=== PATIENT | male | born 2000 | race Caucasian/White ===

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

== ENCOUNTER 2022-01-31 15:22 | Day surgery (SDC) | payer OTHER, SELFPAY ==
[2022-01-31] VITALS (7 sets, daily range): BP systolic 130–156; BP diastolic 65–90; PULSE 75–99; RESP 12–21; TEMP 36.2–36.6; O2SAT 97–100; BMI 52.2
--- NOTE | 2022-01-31 14:06 | SUR.PREOP ---
Report to the Outpatient Waiting Room, entrance under the green pavilion located off [facility], at time 1530 on date 01/31/22. OR Time: 1730. - You and your visitor will be asked to self-screen and do not enter if you have any COVID symptoms. - Only one visitor and NO children visitors are allowed at this time. - The patient visitor is requested to leave or wait in car when not with patient due to restrictions. - A mask is required within the hospital. Patients may have clear liquids (water, carbonated beverages, clear teas, apple juice) until 3 hours prior to surgery with a maximum of 20 ounces. - No food from midnight until time of surgery - Infants may have breast milk until 4 hours before surgery, infant formula 6 hours prior to surgery. - Children will be allowed to drink immediately following surgery. If applicable, please bring a bottle or sippy cup to assist with drinking. Juice, water, soda, and popsicles are readily available. For infants on formula, please bring formula the day of surgery. Pacifiers are allowed. Take the following medications with a SIP of water the morning of surgery: HYDROXYZINE Medications to discontinue per physician Date to take last dose Please no make-up, nail albanian, hairspray, perfume, deodorant, or body powder the day of surgery. No jewelry (including any body piercings) or valuables the day of surgery, leave them at home. Please take a shower or bath the night before, or the morning of, surgery with an antibacterial soap. Wear comfortable, loose fitting clothing. Children are encouraged to wear pajamas. - Jewelry must be removed prior to entering the operating room. Rings and piercings that are not removed may be cut off. - The hospital will not accept responsibility for valuables. - Please leave all valuables, including medications, at home the day of surgery. If you are going home after surgery, a licensed otr flatbed driver must drive you home. - NO public transportation without another adult. - We recommend that an adult stay with you for 24 hours following discharge. - We also recommend that you do not drive, make important decision, drink alcoholic beverages, or take any drugs that were not prescribed by your health care provider for at least 24 hours after your discharge time. For Pediatric surgeries, we recommend two adults accompany the child home (only one inside the building at this time). Follow any additional instructions given to you from your surgeon. If you or anyone in your household have experienced Covid symptoms in the past week, please notify your surgeon or the nurse liaison at the phone number below for possible testing. Telephone instructions given to VISHAL RAMEY and asked if any additional questions and then verbalized understanding. Patient advised to call surgeon office or pre surgery nurse liaison [phone] if any additional questions.
[2022-01-31] MEDS: LACTATED RINGERS 1,000 ML 30 ML IV CONT ×2 (15:25→18:02)
--- NOTE | 2022-01-31 15:29 | WPDANESEPPF ---
Anes - Initial Pre Proc Eval Procedure: Operation Date: 01/31/22 17:30 Proposed Procedures p Incision and Drainage of Jeanna Rectal Abscess - Efren Dominique MD Date/Time: 01/31/22 15:29 Surgeon: Efren Dominique MD Pre Op Diagnosis: jeanna rectal abscess Patient Data Age: 21 Gender: M Height: 1.8 m Weight: 169.84 kg Allergies Allergy/AdvReac Type Severity Reaction Status Date / Time No Known Allergies Allergy Verified 01/31/22 12:50 Home Medications Medication Instructions Recorded Confirmed Type loratadine 10 mg tablet 10 mg PO DAILY 08/17/19 01/31/22 History lamotrigine 100 mg tablet 100 mg PO BID 11/06/20 01/31/22 History amlodipine 10 mg tablet 10 mg PO DAILY #90 tabs 02/20/21 01/31/22 Rx hydroxyzine HCl 10 mg tablet 25 mg PO QID PRN Anxiety 02/20/21 01/31/22 History sertraline 100 mg tablet 100 mg PO BID 02/20/21 01/31/22 History bupropion HCl 75 mg tablet 75 mg PO BID 04/02/21 01/31/22 History metoprolol succinate 50 mg 50 mg PO DAILY #90 tabs 09/10/21 01/31/22 Rx tablet,extended release 24 hr cholecalciferol (vitamin D3) 25 25 mcg PO DAILY 12/04/21 01/31/22 History mcg (1,000 unit) tablet (Vitamin D3) trazodone 50 mg tablet 50 mg PO QHS PRN Sleep 01/10/22 01/31/22 History omeprazole 20 mg capsule,delayed 20 mg PO DAILY #30 caps 01/18/22 01/31/22 Rx release cephalexin 500 mg capsule 500 mg PO Q12H 14 days #28 caps 01/31/22 01/31/22 Rx Patient hx anesthesia problems: none Family hx anesthesia problems: none Results Review: All pre-operative results and documents have been reviewed as part of the pre-operative evaluation. [facility] Past Medical History Medical History ADHD, predominantly hyperactive-impulsive subtype Adjustment disorder with depressed mood Anxiety Attention deficit disorder (~09/26/17) Bipolar 1 disorder, depressed BMI,pediatric >= 95% (03/01/19) Developmental dyslexia Essential hypertension HTN, age 0-18 Impulsive personality disorder Major depressive disorder, single episode, unspecified Morbid (severe) obesity due to excess calories Obesity (~09/26/17) Obstructive sleep apnea (adult) (pediatric) Thumb fracture (~09/26/17) Family History Family History Mother Diabetes mellitus Family history of mental disorder Hypertension Father Family history of mental disorder Grandparent Diabetes mellitus Other Family history of elevated blood lipids Social History Social History Smoking status: Former smoker Tobacco type: e-cigarettes/vaping Second hand tobacco smoke exposure: No Additional smoking assessment comments: 5 YEARS VAPING Alcohol intake: never Living arrangements: with family Gender identity (if verbalized by the patient): Male Spiritual care concerns: No Anes - Eval Final PreProcedure Day of Procedure 01/31/22 15:29 Patient weight: super morbidly obese Heart: regular rate and rhythm Lungs: clear to auscultation Airway: Mallampati scale class II Neurological: alert and oriented Last oral intake: >/= 8 hours ASA classification: III Emergent: no Anesthetic plan: proceed Anesthesia type and monitoring: general LMA and standard monitoring Results Review: All pre-operative results and documents have been reviewed as part of the pre-operative evaluation. Informed Consent: The patient's anesthetic plan and its attendant risks and benefits were discussed with the patient/family/POA. Questions were solicited and answers provided to the satisfaction of the patient/family/POA.
--- NOTE | 2022-01-31 15:35 | WPDHPUPDATE1 ---
History and Physical Update Update Date/Time: 01/31/22 15:35 History and Physical has been reviewed, including an updated exam of the patient. There are NO changes in the patient's condition. Risks, benefits, and alternatives have been discussed and questions answered. Patient agrees to proceed with procedure.
[2022-01-31] MEDS: ACETAMINOPHEN 500 MG TABLET 1000 MG PO (15:40)
[2022-01-31] MEDS: KETOROLAC 15 MG/ML VIAL (*BKC) IV PUSH (15:40)
[2022-01-31] MEDS: ceFAZolin 3 GM/D5W 100 ML 100 ML IVPB (17:03)
[2022-01-31] MEDS: BUPIVACAINE/EPINEPHRINE 0.25% 50 ML VIAL INFILTRATE (17:34)
--- NOTE | 2022-01-31 17:52 | P.OP_ITS ---
Procedure Note - Detailed Date of Procedure 01/31/22 Pre-op Diagnosis jeanna rectal abscess Post-op Diagnosis Other (Perineal abscess) Procedure Performed Incision and drainage complicated perineal abscess Surgeon Efren Dominique MD Research Methods Instructor Isis Hall [facility] Anesthesia General and Local (0.25% bupivacaine with epinephrine) Indications Patient is a 21-year-old man who, back in November, had a perineal abscess incised and drained in his primary care doctor's office. This did go on to heal but then, 3 days ago, he developed increased swelling and pain. This morning this spontaneously drained again. He was seen in the office this morning and found to have a large perineal abscess. It was unclear if this tracked towards the rectum or the scrotum. It was quite tender and patient is morbidly obese. He is taken to surgery now for incision and drainage under anesthesia Findings The abscess did not at all tract towards the rectum. It did track towards the base of the scrotum. I could find no tracking further than the lower aspect of the scrotum. Description of Procedure Patient was taken to surgery and induced into general anesthesia. He was placed in lithotomy in a supine position. The rectal and perineal area as well as the genitalia were exposed. This entire area was prepped and draped. I initially probed the abscess checking for any tracking towards the rectum. There was no evidence of this at all. There did did seem to be some tracking anteriorly towards the scrotum. The skin overlying the abscess was very flimsy and I opened this skin removing some of it for adequate drainage. I then used to probe followed by a curved fine tip clamp. It did track fairly deep in the perineum to the base of the scrotum. I infiltrated local over the area where the probe ended. I made an incision here and then using the curved clamp was able to connect the tract of the abscess cavity through this opening. I put a finger in the larger opening in the perineum and broke up any loculations. I then irrigated the tract with saline. A quarter-inch Aan drain was then placed through the tract. It was sutured to itself with 2-0 silk. The end was cut very short. The Ana was acting as a seton to facilitate drainage of the abscess. I then used cautery and Nu gauze packing to achieve hemostasis of the wound. The wound was then dressed with fluffs and ABDs. The patient was returned to a supine position, awakened and taken to recovery in good condition. Sponge and needle counts were correct x2. Estimated Blood Loss -50 Drains Yes (Quarter-inch Ana drain as a seton) Packing Yes (1/2 inch iodoform Nu Gauze) Pathology None sent Complications No immediate complications Condition Stable Disposition PACU [facility] Billing Surgery - Charge Forward: Surgery Billing (Incision and drainage complex perineal abscess)
== END 2022-01-31 19:17 | disposition home or self-care (01) ==
PROVIDERS: PCP Family Medicine; Visit Provider Surgery
PROC: (CPT 46040; principal; 2022-01-31 17:30)
DX: L02.215 Cutaneous abscess of perineum (principal); F90.1 Attention-deficit hyperactivity disorder, predominantly hyperactive type; F31.9 Bipolar disorder, unspecified; I10 Essential (primary) hypertension; F41.9 Anxiety disorder, unspecified; G47.33 Obstructive sleep apnea (adult) (pediatric); E66.01 Morbid (severe) obesity due to excess calories; F17.290 Nicotine dependence, other tobacco product, uncomplicated
CPT/HCPCS: 10061; A9270; J0330; J0690; J1100; J1885; J2250; J2405; J2704; J3010; J7120

== ENCOUNTER 2022-04-22 18:12 | Emergency (ER) | payer OTHER, SELFPAY ==
[2022-04-22 18:22] VITALS: BP 137/90; PULSE 82; RESP 16; TEMP 36.8; O2SAT 100
--- NOTE | 2022-04-22 18:22 | ED.WOUNDLAC ---
HPI - Wound/Laceration General Chief Complaint: Wound/Laceration Stated Complaint: chin injury Time Seen by Provider: 04/22/22 18:20 Source: patient and RN notes reviewed Mode of arrival: ambulatory Limitations: no limitations History of Present Illness HPI narrative: 20-year-old male presents with concern for injury to his chin. He reports while at work a wrench slipped and hit him in the chin he reports a laceration under his chin. He reports some dizziness. He denies direct head trauma. He denies history of concussion. He denies vomiting or severe headaches. Has retrograde amnesia. Related Data Home Medications Medication Instructions Recorded Confirmed loratadine 10 mg tablet 10 mg PO DAILY 08/17/19 04/02/22 lamotrigine 100 mg tablet 100 mg PO BID 11/06/20 04/02/22 hydroxyzine HCl 10 mg tablet 25 mg PO QID PRN Anxiety 02/20/21 04/02/22 sertraline 100 mg tablet 100 mg PO BID 02/20/21 04/02/22 bupropion HCl 75 mg tablet 75 mg PO BID 04/02/21 04/02/22 cholecalciferol (vitamin D3) 25 25 mcg PO DAILY 12/04/21 04/02/22 mcg (1,000 unit) tablet (Vitamin D3) trazodone 50 mg tablet 50 mg PO QHS PRN Sleep 01/10/22 04/02/22 lisdexamfetamine 60 mg capsule mg 04/22/22 (Vyvanse) Allergies Allergy/AdvReac Type Severity Reaction Status Date / Time No Known Allergies Allergy Verified 04/01/22 08:57 Review of Systems Review of Systems: CONSTITUTIONAL: Denies malaise, chills, sweats, or fever. SKIN: Reports laceration under his chin MUSCULOSKELETAL: Denies muscle skeletal pain NEUROLOGIC: Denies numbness, weakness, headache. Reports dizziness All systems reviewed & are unremarkable except as noted in HPI and below PMFSH Past Medical History Medical History ADHD, predominantly hyperactive-impulsive subtype Adjustment disorder with depressed mood Anxiety Attention deficit disorder (~09/26/17) Bipolar 1 disorder, depressed BMI,pediatric >= 95% (03/01/19) Developmental dyslexia Essential hypertension HTN, age 0-18 Impulsive personality disorder Major depressive disorder, single episode, unspecified Morbid (severe) obesity due to excess calories Obesity (~09/26/17) Obstructive sleep apnea (adult) (pediatric) Thumb fracture (~09/26/17) Surgical History Surgical History History of incision and drainage I&D Perirectal Abscess on 01/31 Family History Family History Mother Diabetes mellitus Family history of mental disorder Hypertension Father Family history of mental disorder Grandparent Diabetes mellitus Other Family history of elevated blood lipids Social History Social History Smoking status: Former smoker Tobacco type: e-cigarettes/vaping Second hand tobacco smoke exposure: No Additional smoking assessment comments: 5 YEARS VAPING Alcohol intake: never Gender identity (if verbalized by the patient): Male Spiritual care concerns: No Comments At time of signature, agree with nursing past medical, surgical, social and family history. There is no relevant family history pertinent to the presenting complaint Exam Narrative: GENERAL: Well-appearing, well-nourished, and in no acute distress. HEAD: Normocephalic, atraumatic. EYES: PERRLA, conjunctivae clear, and EOMI. ENT: Mucous membranes moist. NECK: Supple. No lymphadenopathy CHEST: Clear to auscultation. No respiratory distress. HEART: Regular rate and rhythm. SKIN: Warm, dry. 1 cm linear laceration noted under the chin, gaping NEURO: Alert and oriented x3. No focal deficits, cranial nerves 2-12 grossly intact PSYCH: Normal mood and affect Course Course Emergency Course: Discussed limited diagnostic capability express care for head injury, patient is understandable, patient chooses to not go to the
== END 2022-04-22 18:43 | disposition home or self-care (01) ==
PROVIDERS: Emergency Provider Nurse Practitioner; PCP Family Medicine
DX: S01.81XA Laceration without foreign body of other part of head, initial encounter (principal); I10 Essential (primary) hypertension; Z87.891 Personal history of nicotine dependence; W22.8XXA Striking against or struck by other objects, initial encounter; Y99.0 Civilian activity done for income or pay
CPT/HCPCS: 12011; 99212; G0463

== ENCOUNTER 2022-06-20 12:22 | Outpatient (CLI) | payer OTHER, SELFPAY ==
--- NOTE | ~2022-06-20 | XR_ITS ---
Right Knee Technique: AP, lateral, and sunrise views were obtained. Clinical History: Pain Findings: No fracture or dislocation is seen. Osseous alignment is anatomic. Joint spaces are preserv ed without degenerative or erosive change. Soft tissues are unremarkable. No joint effusion is seen. Impression: Unremarkable right knee radiographs. Reviewed, dictated and finalized at location . GRADER Impression: Unremarkable right knee radiographs.
== END 2022-06-20 12:23 | disposition home or self-care (01) ==
LOC: ANHIMG 12:24
PROVIDERS: PCP Family Medicine; Visit Provider Physician Assistant
DX: M25.561 Pain in right knee (principal)
CPT/HCPCS: 73562

== ENCOUNTER 2022-09-03 08:48 | Outpatient (CLI) | payer OTHER, SELFPAY ==
--- NOTE | ~2022-09-03 | US_ITS ---
Limited Abdominal Sonogram: Real-time sonographic imaging of the right upper quadrant was performed. Clinical History: Right upper quadrant pain Findings: The liver appears echogenic, with no evidence of mass lesion or bile duct dilatation. Main portal vein demonstrates normal direction of flow. The gallbladder is well distended, and appears no rmal with no evidence of gallstone or wall thickening. The common bile duct measures 2 mm. The visua lized pancreas, aorta, and IVC are unremarkable. Impression: Diffuse fatty infiltration of liver. Reviewed, dictated and finalized at location M. Impression: Diffuse fatty infiltration of liver.
== END 2022-09-03 08:49 | disposition home or self-care (01) ==
PROVIDERS: PCP Family Medicine; Visit Provider Family Medicine
DX: R10.11 Right upper quadrant pain (principal); K76.0 Fatty (change of) liver, not elsewhere classified
CPT/HCPCS: 76705

== ENCOUNTER 2023-06-27 15:50 | Outpatient (CLI) | payer OTHER, SELFPAY ==
[2023-06-27 19:31] LABS: Basophils Absolute Auto 0.1 K/mm3 (0.0-0.1); Basophils Percent Auto 0.9 % (0.2-1.2); Eosinophils Percent Auto 0.7 % (0-4.4); Hematocrit 47.1 % (42.0-52.0); Immature Granulocyte Absolute 0.01 K/mm3 (0.00-0.031); Immature Granulocyte Percent A 0.2 % (0-0.5); Lymphocytes Absolute Auto 1.69 K/mm3 (0.9-3.2); Mean Corpuscular HGB Conc 31.8 g/dl (32-36); Mean Corpuscular Hemoglobin 25.6 pg (26-34); Mean Corpuscular Volume 80.5 fl (80-100); Monocytes Absolute Auto 0.4 K/mm3 (0.1-0.6); Monocytes Percent Auto 6.6 % (2.6-8.5); Neutrophils Absolute Auto 3.5 K/mm3 (1.3-6.7); Neutrophils Percent Auto 61.6 % (45.5-73.1); Platelet Count Result 251 k/mm3 (150-375); Red Blood Count 5.85 M/mm3 (4.6-6.20); Red Cell Distribution Width 15.3 % (11.5-14.5); White Blood Count 5.6 K/mm3 (4.5-10.0)
[2023-06-27 19:52] LABS: Alanine Aminotransferase 26 U/L (6-50); Albumin Level 4.8 g/dL (3.5-5.1); Alkaline Phosphatase 71 U/L (38-126); Anion Gap 8 mmol/L (8-16); Aspartate Amino Transferase 27 U/L (17-59); Bilirubin,Total 1.4 mg/dL (0.2-1.3); Blood Urea Nitrogen 18 mg/dL (9-20); Calcium 9.5 mg/dL (8.4-10.2); Carbon Dioxide 29 mmol/L (22-30); Chloride 104 mmol/L (98-107); Cholesterol 193 mg/dL (0-200); Estimated Glomerular Filt Rate > 60; Glucose 91 mg/dL (65-110); HDL Direct 42 mg/dL; Potassium 4.3 mmol/L (3.4-5.0); Sodium 141 mmol/L (137-145); Triglycerides 188 mg/dL (<150)
[2023-06-27 20:05] LABS: LDL Cholesterol Direct 120 mg/dL
[2023-07-04 12:17] LABS: Testosterone Free 96.3 pg/mL (35.0-155.0); Testosterone Total 430 ng/dL (250-1100)
== END 2023-06-27 15:51 | disposition home or self-care (01) ==
LOC: ANHGOSHLAB 15:51
PROVIDERS: PCP Family Medicine; Visit Provider Nurse Practitioner Family
DX: E66.9 Obesity, unspecified (principal); I10 Essential (primary) hypertension; K75.81 Nonalcoholic steatohepatitis (NASH)
CPT/HCPCS: 36415; 80053; 80061; 84402; 84403; 84443; 85025

== ENCOUNTER 2023-11-10 18:32 | Emergency (ER) | payer OTHER, SELFPAY ==
--- NOTE | 2023-11-10 18:38 | ED.SKABFB ---
HPI - Skin/Abscess/Foreign Bdy General Chief complaint: Skin/Abscess/Foreign Body Stated complaint: Skin Irritation Source: patient and RN notes reviewed Mode of arrival: ambulatory Limitations: no limitations History of Present Illness HPI narrative: Patient is a 23-year-old male who presents to the [facility] with complaints bilateral lower leg redness and swelling. He states that he noticed the redness 2 and half days ago. He states that the redness continues to increase. He denies injury to his lower legs. Denies numbness and sensation is intact. Denies open wounds to the legs. He denies recent fevers. Related Data Home Medications Medication Instructions Recorded Confirmed loratadine 10 mg tablet 10 mg PO DAILY 08/17/19 11/10/23 lamotrigine 100 mg tablet 100 mg PO BID 11/06/20 11/10/23 hydroxyzine HCl 10 mg tablet 25 mg PO QID PRN Anxiety 02/20/21 11/10/23 sertraline 100 mg tablet 100 mg PO BID 02/20/21 11/10/23 bupropion HCl 75 mg tablet 200 mg PO BID 08/06/22 11/10/23 Allergies Allergy/AdvReac Type Severity Reaction Status Date / Time No Known Allergies Allergy Verified 08/29/23 10:53 Review of Systems Review of Systems: CONSTITUTIONAL: Denies fever, chills, or sweats. EYES: Denies visual changes, redness, or discharge. ENT: Denies otalgia and sore throat CARDIOVASCULAR: Denies chest pain, palpitations, or edema. RESPIRATORY: Denies cough or dyspnea. GASTROINTESTINAL: Denies abdominal pain, nausea, vomiting, or diarrhea. GENITOURINARY: Denies dysuria or hematuria. SKIN: Redness and swelling to bilateral lower legs. MUSCULOSKELETAL: Denies back pain, joint pain, or myalgia. NEUROLOGIC: Denies headache, numbness, or weakness. Pertinent positives per HPI. [facility] Past Medical History Medical History ADHD, predominantly hyperactive-impulsive subtype Adjustment disorder with depressed mood Anxiety Attention deficit disorder (~09/26/17) Bipolar 1 disorder, depressed BMI,pediatric >= 95% (03/01/19) Developmental dyslexia Essential hypertension HTN, age 0-18 Impulsive personality disorder Major depressive disorder, single episode, unspecified Morbid (severe) obesity due to excess calories Obesity (~09/26/17) Obstructive sleep apnea (adult) (pediatric) Thumb fracture (~09/26/17) Surgical History Surgical History History of incision and drainage I&D Perirectal Abscess on 01/31 Family History Family History Mother Diabetes mellitus Family history of mental disorder Hypertension Father Family history of mental disorder Grandparent Diabetes mellitus Other Family history of elevated blood lipids Social History Social History Smoking status: Current some day smoker Tobacco type: e-cigarettes/vaping Second hand tobacco smoke exposure: No Additional smoking assessment comments: 5 YEARS VAPING will have a cigarette on occasion Alcohol intake: current Alcohol use details: occasionally Substance use: never Substance use type: does not use Do You Feel Safe in your Home?: Yes Lack of Transportation: No Lack of Food: Never True Current Housing: I Have Housing Concerned About Future Housing: No Difficulty Paying Gas/Electric Bills: No Difficulty Paying for Meds: No Currently Unemployed: No Education: High School Diploma/GED Difficulty w/ Childcare or Family Care: No Living arrangements: with family Gender identity (if verbalized by the patient): Male Spiritual care concerns: No Comments At the time of my signature, I reviewed and agree with the nursing past medical, surgical, social, and family history. There is no relevant family history pertinent to the patient complaint. Exam Narrative: GENERAL: This is a well-
[2023-11-10 18:49] VITALS: BP 158/91; PULSE 87; RESP 20; TEMP 36.7; O2SAT 98
== END 2023-11-10 19:39 | disposition home or self-care (01) ==
PROVIDERS: Emergency Provider Nurse Practitioner; PCP Family Medicine
DX: L03.116 Cellulitis of left lower limb (principal); L03.115 Cellulitis of right lower limb; F17.290 Nicotine dependence, other tobacco product, uncomplicated; I10 Essential (primary) hypertension; E66.01 Morbid (severe) obesity due to excess calories; Z68.43 Body mass index [BMI] 50.0-59.9, adult; F31.9 Bipolar disorder, unspecified; F41.9 Anxiety disorder, unspecified
CPT/HCPCS: 99213; G0463

== ENCOUNTER 2024-01-12 16:07 | Emergency (ER) | payer OTHER, SELFPAY ==
--- NOTE | ~2024-01-12 | XR_ITS ---
XR finger 2nd RT min 2V 01/12/2024 16:34 INDICATION: Right second finger pain after injury PROCEDURE: 4 views right second finger COMPARISON: No prior studies for comparison. FINDINGS: Fracture, dislocation or subluxation is not identified. The soft tissues appear within norm al limits. No foreign bodies are identified. IMPRESSION: 1: NO ACUTE BONE OR JOINT ABNORMALITY IDENTIFIED. Reviewed, dictated and finalized at location B.
[2024-01-12 16:21] VITALS: BP 138/74; PULSE 119; RESP 15; TEMP 37; O2SAT 98
--- NOTE | 2024-01-12 16:23 | ED.UPPEXIN ---
HPI - Extremity Injury (Upper) General Chief Complaint: Extremity Injury, Upper Stated Complaint: Index Finger Right Hand Time Seen by Provider: 01/12/24 16:25 Source: patient Mode of arrival: ambulatory Limitations: no limitations History of Present Illness HPI narrative: Anil is a 23-year-old male patient presenting to the clinic today with complaints of a right index finger injury. He reports he was helping a friend change some pins and a truck and the pin hammer smashed the distal index finger. He has pain and swelling to the distal index finger. No open skin or laceration but does have some old bruising underneath the nail Related Data Home Medications Medication Instructions Recorded Confirmed loratadine 10 mg tablet 10 mg PO DAILY 08/17/19 01/12/24 lamotrigine 100 mg tablet 100 mg PO BID 11/06/20 01/12/24 hydroxyzine HCl 10 mg tablet 25 mg PO QID PRN Anxiety 02/20/21 01/12/24 sertraline 100 mg tablet 100 mg PO BID 02/20/21 01/12/24 bupropion HCl 75 mg tablet 200 mg PO BID 08/06/22 01/12/24 trazodone 50 mg tablet 50 mg PO HS 01/12/24 01/12/24 Allergies Allergy/AdvReac Type Severity Reaction Status Date / Time No Known Allergies Allergy Verified 01/12/24 16:14 Review of Systems Review of Systems: Pertinent positives per HPI. Patient denies any fever, chills, rash, headache, visual changes, dizziness, cough, runny nose, sore throat, shortness of breath, chest pain, palpitations, nausea, vomiting, diarrhea, constipation, abdominal pain, or any urinary issues. [facility] Past Medical History Medical History ADHD, predominantly hyperactive-impulsive subtype Adjustment disorder with depressed mood Anxiety Attention deficit disorder (~09/26/17) Bipolar 1 disorder, depressed BMI,pediatric >= 95% (03/01/19) Developmental dyslexia Essential hypertension HTN, age 0-18 Impulsive personality disorder Major depressive disorder, single episode, unspecified Morbid (severe) obesity due to excess calories Obesity (~09/26/17) Obstructive sleep apnea (adult) (pediatric) Thumb fracture (~09/26/17) Surgical History Surgical History History of incision and drainage I&D Perirectal Abscess on 01/31 Family History Family History Mother Diabetes mellitus Family history of mental disorder Hypertension Father Family history of mental disorder Grandparent Diabetes mellitus Other Family history of elevated blood lipids Social History Social History Smoking status: Current some day smoker Tobacco type: e-cigarettes/vaping Second hand tobacco smoke exposure: No Additional smoking assessment comments: 5 YEARS VAPING will have a cigarette on occasion Alcohol intake: current Alcohol use details: occasionally Substance use: never Substance use type: does not use Do You Feel Safe in your Home?: Yes Lack of Transportation: No Lack of Food: Never True Current Housing: I Have Housing Concerned About Future Housing: No Difficulty Paying Gas/Electric Bills: No Difficulty Paying for Meds: No Currently Unemployed: No Education: High School Diploma/GED Difficulty w/ Childcare or Family Care: No Living arrangements: with family Gender identity (if verbalized by the patient): Male Spiritual care concerns: No Comments At the time of my signature, I reviewed and agree with the nursing past medical, surgical, social, and family history. There is no relevant family history pertinent to the patient complaint. Exam Narrative: General: Well-developed, well nourished, in no apparent distress Head: Normocephalic, atraumatic. Cardio: Regular rate and rhythm, s1 and s2 normal, no murmur appreciated. Resp: Clear to auscultation bilaterally, no rhonchi, rales,
== END 2024-01-12 16:46 | disposition home or self-care (01) ==
PROVIDERS: Emergency Provider Nurse Practitioner Family; PCP Family Medicine
DX: S60.021A Contusion of right index finger without damage to nail, initial encounter (principal); X58.XXXA Exposure to other specified factors, initial encounter; F41.9 Anxiety disorder, unspecified; I10 Essential (primary) hypertension; F81.0 Specific reading disorder; F31.9 Bipolar disorder, unspecified; E66.01 Morbid (severe) obesity due to excess calories; Z68.42 Body mass index [BMI] 45.0-49.9, adult
CPT/HCPCS: 73140; 99213; G0463

== ENCOUNTER 2024-02-10 07:21 | Emergency (ER) | payer OTHER, SELFPAY ==
[2024-02-10] VITALS (9 sets, daily range): BP systolic 128–162; BP diastolic 72–91; PULSE 62–98; RESP 16–20; TEMP 36.4–36.8; O2SAT 98–100
--- NOTE | ~2024-02-10 | XR_ITS ---
EXAMINATION: XR chest 2V DATE: 02/10/2024 08:09 INDICATION: Chest pain. TECHNIQUE: Frontal and lateral views of the chest were obtained. COMPARISON: None. FINDINGS: There is no pneumonia, pleural effusion, or pneumothorax. The heart size is normal. IMPRESSION: 1. No acute cardiopulmonary disease. Reviewed, dictated and finalized at location A.
--- NOTE | 2024-02-10 07:24 | ECG_ITS ---
Test Date: 2024-02-10 07:26:01 Measurements Intervals [place] Rate: 97 P: 35 OR: 160 QRS: 15 QRSD: 115 T: 2 QT: 344 QTc: 438 Interpretive Statements SINUS RHYTHM MODERATE INTRAVENTRICULAR CONDUCTION DELAY [110+ ms QRS DURATION] No previous ECG available for comparison Electronically Signed On 02-10-2024 10:24:15 CDT by Lis Garland M.D.
[2024-02-10] MEDS: ASPIRIN 81 MG CHEWABLE TABLET 324 MG PO (07:58)
[2024-02-10 07:59] LABS: Basophils Percent Auto 0.5 % (0.2-1.2); Eosinophils Absolute Auto 0.1 K/mm3 (0-0.3); Eosinophils Percent Auto 1.2 % (0-4.4); Hematocrit 43.3 % (42.0-52.0); Hemoglobin 14.1 g/dL (14.0-18.0); Immature Granulocyte Absolute 0.01 K/mm3 (0.00-0.031); Immature Granulocyte Percent A 0.2 % (0-0.5); Lymphocytes Absolute Auto 1.38 K/mm3 (0.9-3.2); Lymphocytes Percent Auto 33.5 % (18.3-44.2); Mean Corpuscular HGB Conc 32.6 g/dl (32-36); Mean Corpuscular Hemoglobin 27.6 pg (26-34); Mean Corpuscular Volume 84.9 fl (80-100); Mean Platelet Volume 10.1 fl (7.4-10.4); Monocytes Absolute Auto 0.4 K/mm3 (0.1-0.6); Neutrophils Absolute Auto 2.3 K/mm3 (1.3-6.7); Neutrophils Percent Auto 54.6 % (45.5-73.1); Platelet Count Result 184 k/mm3 (150-375); Red Cell Distribution Width 14.2 % (11.5-14.5); White Blood Count 4.1 K/mm3 (4.5-10.0)
[2024-02-10 08:13] LABS: Alanine Aminotransferase 31 U/L (6-50); Albumin Level 4.4 g/dL (3.5-5.1); Alkaline Phosphatase 64 U/L (38-126); Anion Gap 12 mmol/L (4-12); Aspartate Amino Transferase 28 U/L (17-59); Blood Urea Nitrogen 12 mg/dL (9-20); Calcium 9.5 mg/dL (8.4-10.2); Carbon Dioxide 25 mmol/L (22-30); Chloride 104 mmol/L (98-107); Estimated CRCL calculation 174 ml/min; Estimated Glomerular Filt Rate > 60; Glucose 85 mg/dL (65-110); Lipase 126 U/L (23-300); Potassium 3.5 mmol/L (3.4-5.0); Sodium 141 mmol/L (137-145)
[2024-02-10 08:16] LABS: INR 1.1; Prothrombin Time 14.2 Seconds (11.1-14.7)
[2024-02-10 08:17] LABS: Partial Thromboplastin Time 35.6 Seconds (22.3-36.8)
[2024-02-10 08:25] LABS: Troponin I < 0.012 ng/mL (0.000-0.034)
--- NOTE | 2024-02-10 08:34 | PC.NURSE ---
Pt resting on stretcher, reproducible chest pain noted. Denies SOB.
--- NOTE | 2024-02-10 08:56 | ED.CHESTPAIN ---
HPI - Chest Pain General Chief Complaint: Chest Pain Stated Complaint: CHEST PAIN Time Seen by Provider: 02/10/24 08:52 History of Present Illness HPI narrative: 23-year-old male history of hypertension, MULU, anxiety and presents to the emergency room for evaluation of chest pain. Patient states he developed chest pain last night while fixing his truck. Describes the pain as a punching sensation on the right side of his chest that does not radiate. Denies any alleviating or aggravating factors. States he believes his GERD and took Tums with no relief. Denies any shortness of breath, difficulty breathing, palpitations, lower extremity swelling. Denies a history of similar symptoms. Denies history of blood clots. No recent trauma. No history of cancer. Related Data Home Medications Medication Instructions Recorded Confirmed loratadine 10 mg tablet 10 mg PO DAILY 08/17/19 01/12/24 lamotrigine 100 mg tablet 100 mg PO BID 11/06/20 01/12/24 hydroxyzine HCl 10 mg tablet 25 mg PO QID PRN Anxiety 02/20/21 01/12/24 sertraline 100 mg tablet 100 mg PO BID 02/20/21 01/12/24 bupropion HCl 75 mg tablet 200 mg PO BID 08/06/22 01/12/24 trazodone 50 mg tablet 50 mg PO HS 01/12/24 01/12/24 Allergies Allergy/AdvReac Type Severity Reaction Status Date / Time No Known Allergies Allergy Verified 02/10/24 07:33 Review of Systems Review of Systems: ROS unremarkable except for noted in HPI PMFSH Past Medical History Medical History ADHD, predominantly hyperactive-impulsive subtype Adjustment disorder with depressed mood Anxiety Attention deficit disorder (~09/26/17) Bipolar 1 disorder, depressed BMI,pediatric >= 95% (03/01/19) Developmental dyslexia Essential hypertension HTN, age 0-18 Impulsive personality disorder Major depressive disorder, single episode, unspecified Morbid (severe) obesity due to excess calories Obesity (~09/26/17) Obstructive sleep apnea (adult) (pediatric) Thumb fracture (~09/26/17) Surgical History Surgical History History of incision and drainage I&D Perirectal Abscess on 8/11 Family History Family History Mother Diabetes mellitus Family history of mental disorder Hypertension Father Family history of mental disorder Grandparent Diabetes mellitus Other Family history of elevated blood lipids Social History Social History Smoking status: Current some day smoker Tobacco type: e-cigarettes/vaping Second hand tobacco smoke exposure: No Additional smoking assessment comments: 5 YEARS VAPING will have a cigarette on occasion Alcohol intake: current Alcohol use details: occasionally Substance use: never Substance use type: does not use Do You Feel Safe in your Home?: Yes Lack of Transportation: No Lack of Food: Never True Current Housing: I Have Housing Concerned About Future Housing: No Difficulty Paying Gas/Electric Bills: No Difficulty Paying for Meds: No Currently Unemployed: No Education: High School Diploma/GED Difficulty w/ Childcare or Family Care: No Living arrangements: with family Gender identity (if verbalized by the patient): Male Spiritual care concerns: No Exam Narrative: GENERAL: Well-appearing, well-nourished, no physical limitations, and in no acute distress. HEAD: Normocephalic, atraumatic. EYES: Conjunctivae normal, PERRLA and EOMI. CHEST: Clear to auscultation. No respiratory distress. No wheezes rales or rhonchi. No tenderness. HEART: Regular rate and rhythm. No murmur heard. Normal peripheral pulses. ABDOMEN: Soft, nontender, nondistended, normal active bowel sounds. morbidly obese EXTREMITIES: Normal range of motion. No edema. No clubbing or cyanosis SKIN: Warm, dry, no rash. No noted wo
--- NOTE | 2024-02-10 09:04 | PC.NURSE ---
Lab notified of new order for D-Dimer
[2024-02-10 10:08] LABS: D Dimer < 0.22 ug/mL (<0.48)
[2024-02-10] MEDS: KETOROLAC 30 MG/ML VIAL (*BKC) IV PUSH (10:08)
--- NOTE | 2024-02-10 10:44 | ECG_ITS ---
Test Date: 2024-02-10 10:51:23 Measurements Intervals [place] Rate: 61 P: 31 RI: 190 QRS: 7 QRSD: 107 T: 7 QT: 410 QTc: 415 Interpretive Statements SINUS RHYTHM Compared to ECG 02/10/2024 07:26:01 NO SIGNIFICANT CHANGES Electronically Signed On 02-10-2024 15:19:06 CDT by Lis Garland M.D.
[2024-02-10 11:20] LABS: Troponin I < 0.012 ng/mL (0.000-0.034)
== END 2024-02-10 11:37 | disposition home or self-care (01) ==
PROVIDERS: Student in an Organized Health Care Education/Training Program; Emergency Provider Nurse Practitioner Family; PCP Family Medicine
DX: R07.89 Other chest pain (principal); I10 Essential (primary) hypertension; E66.01 Morbid (severe) obesity due to excess calories; Z68.42 Body mass index [BMI] 45.0-49.9, adult; G47.33 Obstructive sleep apnea (adult) (pediatric); F41.9 Anxiety disorder, unspecified; F31.9 Bipolar disorder, unspecified; F90.1 Attention-deficit hyperactivity disorder, predominantly hyperactive type; F63.9 Impulse disorder, unspecified; Z79.899 Other long term (current) drug therapy; I45.9 Conduction disorder, unspecified
CPT/HCPCS: 36415; 71046; 80053; 83690; 84484; 85025; 85380; 85610; 85730; 93005; 96374; 99284; A9270; J1885

== ENCOUNTER 2024-06-08 15:54 | Outpatient (CLI) | payer BC, MEDICAID, SELFPAY ==
[2024-06-08 20:45] LABS: Alanine Aminotransferase 28 U/L (6-50); Alkaline Phosphatase 62 U/L (38-126); Anion Gap 9 mmol/L (4-12); Aspartate Amino Transferase 34 U/L (17-59); Bilirubin,Total 1.2 mg/dL (0.2-1.3); Blood Urea Nitrogen 19 mg/dL (9-20); Calcium 9.8 mg/dL (8.4-10.2); Carbon Dioxide 27 mmol/L (22-30); Chloride 106 mmol/L (98-107); Estimated Glomerular Filt Rate > 60; Glucose 91 mg/dL (65-110); Potassium 4.5 mmol/L (3.4-5.0); Sodium 142 mmol/L (137-145)
[2024-06-08 21:30] LABS: Erythrocyte Sedimentation Rate 16 mm/hr (0-20)
[2024-06-14 16:28] LABS: ANA Pattern Nuclear, Homogeneous
== END 2024-06-08 15:55 | disposition home or self-care (01) ==
LOC: ANHGOSHLAB 15:57
PROVIDERS: PCP Family Medicine; Visit Provider Family Medicine
DX: R53.83 Other fatigue (principal); M79.671 Pain in right foot; M79.672 Pain in left foot
CPT/HCPCS: 36415; 80053; 84443; 85652; 86038; 86039; 86141

== ENCOUNTER 2024-06-18 09:26 | Emergency (ER) | payer BC, MEDICAID, SELFPAY ==
--- NOTE | ~2024-06-18 | XR_ITS ---
EXAMINATION: XR chest 2V DATE: 06/18/2024 09:49 INDICATION: Left-sided chest pain TECHNIQUE: PA and lateral views of the chest were obtained. COMPARISON: Chest radiograph dated 02/10/2024 FINDINGS: The lungs remain clear with no focal airspace opacities, pulmonary edema, pleural effusion or pneumot horax. The cardiomediastinal silhouette is normal. Thoracic spondylosis with chronic mild anterior we dging of a few lower thoracic vertebral bodies. IMPRESSION: 1. No acute cardiopulmonary disease. Reviewed, dictated and finalized at location B. CTOR RECREATION
--- NOTE | 2024-06-18 09:32 | ECG_ITS ---
Test Date: 2024-06-18 09:37:05 Measurements Intervals [place] Rate: 74 P: 37 [place]: 169 QRS: 21 QRSD: 99 T: 16 QT: 383 QTc: 426 Interpretive Statements SINUS RHYTHM WITH SINUS ARRHYTHMIA OTHERWISE NORMAL ECG Electronically Signed On 06-18-2024 17:21:22 [employer] by Spenser Holland M.D.
[2024-06-18 09:48] VITALS: BP 155/88; PULSE 66; RESP 20; TEMP 36.7; O2SAT 100
[2024-06-18 09:49] LABS: Basophils Percent Auto 0.6 % (0.2-1.2); Eosinophils Absolute Auto 0.1 K/mm3 (0-0.3); Eosinophils Percent Auto 0.8 % (0-4.4); Hemoglobin 15.8 g/dL (14.0-18.0); Immature Granulocyte Absolute 0.01 K/mm3 (0.00-0.031); Immature Granulocyte Percent A 0.2 % (0-0.5); Lymphocytes Absolute Auto 1.83 K/mm3 (0.9-3.2); Lymphocytes Percent Auto 29.3 % (18.3-44.2); Mean Corpuscular HGB Conc 32.9 g/dl (32-36); Mean Corpuscular Hemoglobin 28.3 pg (26-34); Mean Platelet Volume 9.9 fl (7.4-10.4); Monocytes Absolute Auto 0.4 K/mm3 (0.1-0.6); Monocytes Percent Auto 6.1 % (2.6-8.5); Neutrophils Absolute Auto 3.9 K/mm3 (1.3-6.7); Platelet Count Result 224 k/mm3 (150-375); Red Blood Count 5.58 M/mm3 (4.6-6.20); Red Cell Distribution Width 13.2 % (11.5-14.5); White Blood Count 6.3 K/mm3 (4.5-10.0)
[2024-06-18 10:01] LABS: Alanine Aminotransferase 30 U/L (6-50); Albumin Level 4.7 g/dL (3.5-5.1); Alkaline Phosphatase 69 U/L (38-126); Anion Gap 4 mmol/L (4-12); Aspartate Amino Transferase 24 U/L (17-59); Bilirubin,Total 1.1 mg/dL (0.2-1.3); Blood Urea Nitrogen 14 mg/dL (9-20); Calcium 9.2 mg/dL (8.4-10.2); Carbon Dioxide 28 mmol/L (22-30); Chloride 106 mmol/L (98-107); Estimated CRCL calculation 169 ml/min; Estimated Glomerular Filt Rate > 60; Glucose 88 mg/dL (65-110); Lipase 81 U/L (23-300); Potassium 4.2 mmol/L (3.4-5.0); Sodium 138 mmol/L (137-145)
[2024-06-18 10:04] LABS: Prothrombin Time 13.8 Seconds (11.1-14.7)
[2024-06-18 10:06] LABS: Partial Thromboplastin Time 33.9 Seconds (22.3-36.8)
[2024-06-18 10:12] LABS: Troponin I < 0.012 ng/mL (0.000-0.034)
--- NOTE | 2024-06-18 11:27 | ED.CHESTPAIN ---
HPI - Chest Pain General Chief Complaint: Chest Pain Stated Complaint: Shortness of breath left lower chest stabbing pain Time Seen by Provider: 06/18/24 11:25 Source: patient Mode of arrival: ambulatory Limitations: no limitations History of Present Illness HPI narrative: This is a 23-year-old male who presents to the ED for chief complaint of left-sided rib/chest pain beginning this morning while at work. 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 When this pain started suddenly. There was no trauma or MVA. States that the pain is specifically on the left side. Reports it is sometimes worse in certain positions. Denies exertional chest pain or shortness of breath. Denies recent illness, fevers, cough, chills, nausea, vomiting, diarrhea, abdominal pain or urinary symptoms. Related Data Home Medications ?Medication ?Instructions ?Recorded ?Confirmed ?Last Taken ?Type loratadine 10 mg tablet 10 mg PO DAILY 08/17/19 06/08/24 01/31/22 History lamotrigine 100 mg tablet 100 mg PO BID 11/06/20 06/08/24 01/31/22 History hydroxyzine HCl 10 mg tablet 25 mg PO QID PRN Anxiety 02/20/21 06/08/24 01/31/22 History sertraline 100 mg tablet 100 mg PO BID 02/20/21 06/08/24 01/31/22 History bupropion HCl 75 mg tablet 200 mg PO BID 08/06/22 06/08/24 Unknown History trazodone 50 mg tablet 50 mg PO HS 01/12/24 06/08/24 Unknown History Allergies Allergy/AdvReac Type Severity Reaction Status Date / Time No Known Allergies Allergy Verified 06/08/24 15:29 Review of Systems Review of Systems: All systems as dictated in HPI [facility] Past Medical History Medical History Bipolar 1 disorder, depressed Anxiety HTN, age 0-18 Impulsive personality disorder Major depressive disorder, single episode, unspecified ADHD, predominantly hyperactive-impulsive subtype Adjustment disorder with depressed mood BMI,pediatric >= 95% (03/01/19) Developmental dyslexia Essential hypertension Morbid (severe) obesity due to excess calories Obstructive sleep apnea (adult) (pediatric) Thumb fracture (~09/26/17) Obesity (~09/26/17) Attention deficit disorder (~09/26/17) Surgical History Surgical History History of incision and drainage I&D Perirectal Abscess on 01/31 Family History Family History Mother Diabetes mellitus Family history of mental disorder Hypertension Father Family history of mental disorder Grandparent Diabetes mellitus Other Family history of elevated blood lipids Social History Social History Smoking status: Current some day smoker Tobacco type: e-cigarettes/vaping Second hand tobacco smoke exposure: No Additional smoking assessment comments: 5 YEARS VAPING will have a cigarette on occasion Alcohol intake: current Alcohol use details: occasionally Substance use: never Substance use type: does not use Do You Feel Safe in your Home?: Yes Lack of Transportation: No Lack of Food: Never True Current Housing: I Have Housing Concerned About Future Housing: No Difficulty Paying Gas/Electric Bills: No Difficulty Paying for Meds: No Currently Unemployed: No Education: High School Diploma/GED Difficulty w/ Childcare or Family Care: No Living arrangements: with family Gender identity (if verbalized by the patient): Male Spiritual care concerns: No Exam Narrative: GENERAL: Well-appearing, well-nourished, and in no acute distress. HEAD: Normocephalic, atraumatic. EYES: PERRLA and EOMI. ENT: Nares clear, no rhinorrhea or epistaxis. Mucous membranes moist. Oropharynx without tonsillar hypertrophy exudate or other lesions. NECK: Supple. No adenopathy or masses. CHEST: No respiratory distress. Clear to auscultation. No wheezes rales or rhonchi HEART: Regular rate and rhythm. No murmur heard. Normal peripheral pulses. ABDOMEN: Soft, nontender, nondistended, normal active bowel sounds. Negative flank tenderness bilaterally. MSK: Normal range of motion. No edema. SKIN: Warm, dry, no rash. NEURO: Alert and oriented x4. No focal deficits. PSYCH: Normal mood and affect. Course Vital Signs Vital signs: Vital Signs Temperature 98.0 F 06/18/24 09:48 Pulse Rate 66 06/18/24 09:48 Respiratory Rate 20 06/18/24 09:48 Blood Pressure 155/88 H 06/18/24 09:48 Pulse Oximetry 100 06/18/24 09:48 Oxygen Delivery Room Air 06/18/24 09:48 Temperature 98.0 F 06/18/24 09:48 Pulse Rate 66 06/18/24 09:48 Respiratory Rate 20 06/18/24 09:48 Blood Pressure 155/88 H 06/18/24 09:48 Pulse Oximetry 100 06/18/24 09:48 Oxygen Delivery Room Air 06/18/24 09:48 MDM - Chest Pain MDM Narrative Medical decision making narrative: This is a 23-year-old male who presents to the ED for chief complaint of left-sided chest pain this started this morning. Associated shortness of breath. Vitals are normal. Exam remarkable for the above. No respiratory distress. EKG shows sinus rhythm with sinus arrhythmia. No acute ischemic findings. Lab work grossly unremarkable. Troponin is negative. PERC rule negative for PE. Presentation most likely consistent with pleurisy or other musculoskeletal pain. Patient was given Toradol IM here. Rx for Toradol given as well. Patient will be discharged in stable condition. Supportive measures discussed and return precautions given. Patient is understanding and agreeable with plan for discharge with PCP follow-up. Differential Diagnosis Differential diagnosis: Likely fracture of rib, pneumothorax, stable angina, unstable angina pectoris, atypical chest pain, st elevation myocardial infarction, costochondritis and chest pain Lab Data 06/18/24 09:44 06/18/24 09:44 Labs: Lab Results 06/18/24 Range/Units 09:44 WBC 6.3 (4.5-10.0) K/mm3 RBC 5.58 (4.6-6.20) M/mm3 Hgb 15.8 (14.0-18.0) g/dL Hct 48.0 (42.0-52.0) % MCV 86.0 (80-100) fl MCH 28.3 (26-34) pg MCHC 32.9 (32-36) g/dl RDW 13.2 (11.5-14.5) % Plt Count 224 (150-375) k/mm3 MPV 9.9 (7.4-10.4) fl Immature Gran % (Auto) 0.2 (0-0.5) % Neut % (Auto) 63.0 (45.5-73.1) % Lymph % (Auto) 29.3 (18.3-44.2) % [place] % (Auto) 6.1 (2.6-8.5) % Eos % (Auto) 0.8 (0-4.4) % Baso % (Auto) 0.6 (0.2-1.2) % Lymph # (Auto) 1.83 (0.9-3.2) K/mm3 [place] # (Auto) 0.4 (0.1-0.6) K/mm3 Eos # (Auto) 0.1 (0-0.3) K/mm3 Baso # (Auto) 0.0 (0.0-0.1) K/mm3 Abs Immat Gran (auto) 0.01 (0.00-0.031) K/mm3 Absolute Neuts (auto) 3.9 (1.3-6.7) K/mm3 Absolute Nucleated RBC 0.000 (0.0-0.012) K/mm3 Nucleated RBC % 0.0 (0.0-0.2) % PT 13.8 (11.1-14.7) Seconds INR 1.0 APTT 33.9 (22.3-36.8) Seconds Sodium 138 (137-145) mmol/L Potassium 4.2 (3.4-5.0) mmol/L Chloride 106 (98-107) mmol/L Carbon Dioxide 28 (22-30) mmol/L Anion Gap 4 (4-12) mmol/L BUN 14 D (9-20) mg/dL Creatinine 0.90 (0.7-1.3) mg/dL Estim Creat Clear Calc 169 ml/min Estimated GFR > 60 (59 - ) Glucose 88 (65-110) mg/dL Calcium 9.2 (8.4-10.2) mg/dL Total Bilirubin 1.1 (0.2-1.3) mg/dL AST 24 (17-59) U/L ALT 30 (6-50) U/L Alkaline Phosphatase 69 (38-126) U/L Troponin I < 0.012 (0.000-0.034) ng/mL Total Protein 8.0 (6.3-8.2) g/dL Albumin 4.7 (3.5-5.1) g/dL Lipase 81 (23-300) U/L ECG Data EKG #1: ECG completion date: 06/18/24 ECG completion time: 09:37 Prior ECG tracings: available for review Interpretation: Sinus rhythm with sinus arrhythmia Rate 74 Normal QRS Normal QTC No acute ischemic findings Discharge Plan Discharge Clinical Impression: Pleurisy Patient Disposition: Home, Self-Care Condition: Stable Instructions: Antibiotic Form Additional Instructions: your exam and imaging today are reassuring overall. Please take Toradol for inflammation. Follow-up with PCP on this issue. If you have any new or worsening symptoms please return to the ER for further evaluation. Patient Language: Norwegian Prescriptions: New ketorolac 10 mg tablet 10 mg PO Q8H PRN (Reason: pain) Qty: 15 0RF Rx Instructions: maximum total duration of 5 days from all oral, intranasal, or parenteral formulations No Action loratadine 10 mg Tablet 10 mg PO DAILY trazodone 50 mg tablet 50 mg PO HS sertraline 100 mg tablet 100 mg PO BID hydroxyzine HCl 10 mg tablet 25 mg PO QID PRN (Reason: Anxiety) Zepbound 2.5 mg/0.5 mL pen injector 2.5 mg subcut WEEKLY Qty: 2 0RF Rx Instructions: for 4 weeks metoprolol succinate 50 mg tablet extended release 24 hr 75 mg PO DAILY Qty: 135 3RF lamotrigine 100 mg tablet 100 mg PO BID bupropion HCl 75 mg tablet 200 mg PO BID fluticasone propionate 50 mcg/actuation spray,suspension See Rx Instructions .ROUTE .COMPLEX Qty: 16 0RF Dose Instruction: USE 2 SPRAY INTRANASALLY DAILY ADMINISTER INTO EACH NOSTRIL Rx Instructions: USE 2 SPRAY INTRANASALLY DAILY ADMINISTER INTO EACH NOSTRIL amlodipine 10 mg tablet 10 mg PO DAILY Qty: 30 0RF Rx Instructions: LAST REFILL UNTIL SEEN-NEEDS APPOINTMENT Follow-up/Referrals: Tl Moreno MD [Primary Care Provider] - Stand Alone Forms: Work/School Release IP Time of Disposition: 11:30
[2024-06-18] MEDS: KETOROLAC 30 MG/ML VIAL (*BKC) IM (11:45)
== END 2024-06-18 11:49 | disposition home or self-care (01) ==
LOC: ANHED 11:40
PROVIDERS: Emergency Medicine; Emergency Provider Physician Assistant; PCP Family Medicine
DX: R09.1 Pleurisy (principal); F31.9 Bipolar disorder, unspecified; F17.290 Nicotine dependence, other tobacco product, uncomplicated
CPT/HCPCS: 36415; 71046; 80053; 83690; 84484; 85025; 85610; 85730; 93005; 96372; 99284; J1885

== ENCOUNTER 2024-11-19 13:24 | Outpatient (CLI) | payer BC, MEDICAID, SELFPAY ==
--- OUTSIDE RECORDS SUMMARY | 2024-11-19 13:27 | XMS_ITS | Clinical Summary ---
Author Organization [facility] Address [address] [place] [address] Care Team Providers Care Packager Name Role Phone Tl Moreno MD Primary Care Provider [phone] Source Comments [facility],non-owned Affiliates and Associated Physician Practices is amultiple site organization consisting of ambulatory clinics and hospital sitesin [place], [place], [place] and [place]. This disclosure is being madepursuant to the Care Everywhere program and may not contain all information available regarding this patient. Last updated 18.[facility] Allergies No known active allergies Medications * Be aware that medications may not be up to date on this document. Alwaysverify current medications with the patient. ibuprofen (MOTRIN) 200 MG tablet Take by mouth every 6 hours as needed. Active sertraline (ZOLOFT) 100 MG tablet 02/06/2020 Active lamoTRIgine (LAMICTAL) 100 MG tablet 1 (one) tablet once daily 05/10/2020 Active hydrOXYzine hcl (ATARAX) 10 MG tablet 2.5 (two and one-half) tablets 4 times daily 03/17/2020 Active amLODIPine (NORVASC) 10 MG tablet Take 1 (one) tablet by mouth once daily 30 tablet 12/26/2020 Active buPROPion (WELLBUTRIN) 75 MG tablet Take 1 (one) tablet by mouth 2 times daily Active metoprolol succinate XL 24hr (TOPROL XL) 50 MG tablet Take 1 (one) tablet by mouth once daily 30 tablet 01/23/2022 Active loratadine (Claritin) 10 MG tabletIndicatio ns:MULU (obstructive sleep apnea),Nasal congestion TAKE 1 TABLET BY MOUTH ONCE DAILY NEEDED FOR RUNNY NOSE (NASAL CONGESTION) 30 tablet 2 02/12/2023 Active traZODone (Desyrel) 50 MG tabletIndicatio ns:Chronic insomnia TAKE 1 TABLET BY MOUTH EVERYDAY AT BEDTIME 30 tablet 5 09/11/2023 Active Active Problems Problem Noted Date Diagnosed Date Chronic insomnia 01/05/2024 Abdominal pain, epigastric 05/17/2018 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 We will continue dose of norvasc 10mg PO daily, but will increase the Metopropolol XL to 50mg qd. We discussed the importance of weight loss, exercise, and the low sodium diet. Vishal and mom were interested in pursuing gastric bypass surgery. We gave them the number for weight management. He has lost some weight in the last few weeks according to mom. Vishal had a CMP, CBC, TSH, and HgbA1C on 02/23/21 that was WNLs. I would like for them to start checking the home Blood Pressure again and call us next week with an update. 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 We will continue dose of norvasc 10mg PO daily, but will increase the Metopropolol XL to 50mg qd. We discussed the importance of weight loss, exercise, and the low sodium diet. We also discussed the importance of using the CPAP at night to help with his hypertension. Vishal had an RFP, CBC, and HgbA1C sometime done on 05/05/20. These showed normal BUN, Cr, lytes, A1C, and CBC. I would like for them to continue to check the Blood Pressure at least once a week. I recommend a referral to the Weight loss clinic if Vishal is willing to go. Vishal's weight is 156.5kg (BMI >99%). I think the intermittent redness in the feet may be due to poor circulation. I recommend that Vishal get up to walk about once an hour. If the symptoms persist or worsen he may need to be evaluated in the ER. Patient Verification & Telemedicine Based Consent I am proceeding with this evaluation at the direct request of the patient. I have verified this is the correct patient and have obtained verbal consent from the patient/surrogate to perform this voluntary telemedicine encounter evaluation. I have explained risks (including potential loss of confidentiality), benefits, alternatives, and the potential need for subsequent face to face care. Patient/surrogate understands that there is a risk of medical inaccuracies given that our recommendations will be made based on reported data. Knowing that there is a risk that this information is not reported accurately, and that the telemedicine audio, or data feed may be incomplete, the patient agrees to proceed with evaluation and holds us harmless knowing these risks. In this evaluation, we will be providing recommendations only. The patient/surrogate has been notified that other healthcare professionals (including students, residents and technical personnel) may be involved in this audio evaluation. All laws concerning confidentiality and patient access to medical records and copies of medical records apply to telemedicine. I have reviewed this above verification and consent paragraph with the patient/surrogate. Patient location: Home This encounter was performed using: audio and video Time spent with patient/proxy: 20 This encounter was performed using data gathered by telemedicine and/or internet platforms. These assessments were made in this manner for rapid response during the 2020 COVID-19 pandemic, a declared national emergency. Decisions based on these assessments are guided by recommendations of the U.S. Centers for Disease Control and Prevention and [facility] Health Incident Command, but the assessments are inherently limited by the technology used for data gathering. Assessment & Plan (02/09/2020 4:15 PM CDT): The Blood Pressure at home is still elevated and over the 130s Systolic. We will increase the dose of norvasc to 10mg PO daily. He will continue Metopropolol XL 25mg qd. We discussed the importance of weight loss, exercise, and the low sodium diet. We also discussed the importance of using the CPAP at night to help with his hypertension. In addition we discussed why Vaping was not a good idea. We will have Vishal get a CMP, CBC, and HgbA1C sometime soon at [facility]. 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 Patient Verification & Telemedicine Based Consent I am proceeding with this evaluation at the direct request of the patient. I have verified this is the correct patient and have obtained verbal consent from the patient/surrogate to perform this voluntary telemedicine encounter evaluation. I have explained risks (including potential loss of confidentiality), benefits, alternatives, and the potential need for subsequent face to face care. Patient/surrogate understands that there is a risk of medical inaccuracies given that our recommendations will be made based on reported data. Knowing that there is a risk that this information is not reported accurately, and that the telemedicine audio, or data feed may be incomplete, the patient agrees to proceed with evaluation and holds us harmless knowing these risks. In this evaluation, we will be providing recommendations only. The patient/surrogate has been notified that other healthcare professionals (including students, residents and technical personnel) may be involved in this audio evaluation. All laws concerning confidentiality and patient access to medical records and copies of medical records apply to telemedicine. I have reviewed this above verification and consent paragraph with the patient/surrogate. Patient location: Home This encounter was performed using: audio and video Time spent with patient/proxy: 20 minutes This encounter was performed using data gathered by telemedicine and/or internet platforms. These assessments were made in this manner for rapid response during the 2020 COVID-19 pandemic, a declared national emergency. Decisions based on these assessments are guided by recommendations of the U.S. Centers for Disease Control and Prevention and [facility] Health Incident Command, but the assessments are inherently limited by the technology used for data gathering. 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 The Blood Pressure here today is high at 152/80, but he is very nervous at the doctor's office. Mom says that the home readings arev in the 130s, using a home wrist cuff (their other cuff broke). I would like the school nurse to start taking the Blood Pressure with the appropriate sized arm cuff. Vishal's HR today was in the 60s and he is not physically conditioned. We will lower the metoprolol to 25mg qd and increase the amlodipine to 7.5mg qd. We will attempt to wean completely off the metoprolol and titrate the amlodipine up as necessary. We discussed the importance of weight loss, exercise, and the low sodium diet. We also discussed the importance of using the CPAP at night to help with his hypertension. MULU (obstructive sleep apnea) Overview (01/05/2024): Mild MULU diag psg 10/22/18 OAHI 6.1 AHI 6.1 RDI 6.0 Min 02 sat 86% CPAP titration 01/25/19 7 cmH20 04/07/19 Increase to 8 cmH20 10/20/19 Auto 8-14 cmH20 03/07/21 Auto 10-14 cmh20 01/05/24 Increase APAP from 10-14 to 11- 15 cmH20. Immunizations Immunization Administration Dates Next Due INFLUENZA VACCINE, QUADR. (F LUZONE; FLULAVAL; FLUARIX; AFLURIA QUADRIVALENT; 6MO+), 0.5 ML (IIV4) 05/18/2018 Family History Medical History Relation Name Comments Bipolar Disorder Father Diabetes - Type 2 Maternal Grandfather Hyperlipidemia Maternal Grandfather Hypertension Maternal Grandfather Diabetes - Type 2 Maternal Grandmother Hyperlipidemia Maternal Grandmother Hypertension Maternal Grandmother ADD/ADHD Mother Diabetes - Type 2 Mother Hypertension Mother Diabetes - Type 2 Paternal Grandfather Hypertension Paternal Grandfather Bipolar Disorder Paternal Grandmother Diabetes - Type 2 Paternal Grandmother Hypertension Paternal Grandmother Relation Name Status Comments Father Maternal Grandfather Maternal Grandmother Mother Paternal Grandfather Paternal Grandmother Social History Tobacco Use Types Packs/Day Years Used Date Smoking Tobacco: Every Day Smokeless Tobacco: Current Tobacco Cessation:Ready to Q uit: Not Asked; Counseling Given: Not Answered Alcohol Use Standard Drinks/Week Comments Not Asked 0 (1 standard drink = 0.6 oz pur e alcohol) Sex and Gender Information Value Date Recorded Sex Assigned at Not on file Legal Sex Male 3:18 PM CHOPPER GUN OPERATOR Gender Identity Not on file Sexual Orientation Not on file Last Filed Vital Signs Vital Sign Reading Time Taken Comments Blood Pressure 128/86 01/05/2024 11:19 AM CDT Pulse 100 01/05/2024 11:19 AM CDT Temperature 36.6 C (97.8 F) 05/18/2018 7:45 AM CHOPPER GUN OPERATOR Respiratory Rate 20 01/09/2022 2:05 PM CDT Oxygen Saturation 98% 01/05/2024 11:19 AM CDT Inhaled Oxygen Concentration - - Weight 157.4 kg (347 lb) 01/05/2024 11:19 AM CDT Height 182.9 cm (6') 01/05/2024 11:19 AM CDT Body Mass Index 47.06 01/05/2024 11:19 AM CDT Plan of Treatment Upcoming Encounters Date Type Department Care Team (Late st Contact Info) Description 01/06/2025 11:30 AM CDT Office Visit [facility] [address], [address] [place] [id number] Nixon Zhang MD [address] [place] [address] Health Maintenance Due Date Last Done Comments HIV SCREENING 2017 HPV VACCINE (1 - Male 3-dose series) 2017 MENINGOCOCCAL (Group B) VACC INE SHARED DECISION-MAKING (1 of 2 - Standard) 2018 HEPATITIS C SCREENING 06/17/2020 DTAP/TDAP/TD VACCINES (1 - Tdap) 2021 HEPATITIS B VACCINE (1 of 3 - 19+ 3-dose series) 2021 PNEUMOCOCCAL VACCINE (1 of 2 - PCV) 2021 COVID-19 VACCINE (1 - 2023-2 5 season) 2024 DEPRESSION SCREENING 06/23/2024 INFLUENZA VACCINE (Season Ended) 2025 05/18/20 18 ZOSTER VACCINE (1 of 2) 2052 HIB VACCINE Aged Out No longer eligi ble based on patient's age to complete this topic MENINGOCOCCAL GROUPS A/C/Y/W VACCINE Aged Out No longer eligible b ased on patient's age to complete this topic Insurance [facility] Advance Directives * Full Code (Latest Code Status on File) Date Activated Date Inactivated Comments 05/17/2018 7:22 PM 05/18/2018 12:08 PM Care Teams Packager Relationship Specialty Start Date End Date Tl Moreno MD [address] [place] [phone] PCP - General Family Medicine 05/11/13
[2024-11-19 16:33] LABS: Hematocrit 46.4 % (42.0-52.0); Hemoglobin 15.2 g/dL (14.0-18.0); Mean Corpuscular HGB Conc 32.8 g/dl (32-36); Mean Corpuscular Hemoglobin 28.3 pg (26-34); Mean Corpuscular Volume 86.2 fl (80-100); Mean Platelet Volume 10.9 fl (7.4-10.4); Platelet Count Result 210 k/mm3 (150-375); Red Blood Count 5.38 M/mm3 (4.6-6.20); Red Cell Distribution Width 13.8 % (11.5-14.5); White Blood Count 5.3 K/mm3 (4.5-10.0)
[2024-11-19 18:59] LABS: Hepatitis B Surface Anti Res Negative; Hepatitis C Virus Antibody Negative (Negative)
[2024-11-19 20:02] LABS: Alanine Aminotransferase 42 U/L (6-50); Albumin Level 4.8 g/dL (3.5-5.1); Alkaline Phosphatase 63 U/L (38-126); Anion Gap 11 mmol/L (4-12); Aspartate Amino Transferase 65 U/L (17-59); Bilirubin,Total 1.3 mg/dL (0.2-1.3); Blood Urea Nitrogen 14 mg/dL (9-20); CRP < 0.5 mg/dL (<1.0); Calcium 9.6 mg/dL (8.4-10.2); Carbon Dioxide 27 mmol/L (22-30); Chloride 103 mmol/L (98-107); Estimated Glomerular Filt Rate > 60; Glucose 98 mg/dL (65-110); Potassium 3.3 mmol/L (3.4-5.0); Sodium 141 mmol/L (137-145)
[2024-11-19 20:41] LABS: Complement C3 117 mg/dL (88-165); Rheumatoid Factor < 12.0 IU/ML (<12)
[2024-11-20 07:04] LABS: DNA (ds) Antibody. <1 IU/mL
[2024-11-20 08:38] LABS: SM Antibody <1.0 NEG AI (<1.0 NEG); SM/RNP Antibody <1.0 NEG AI (<1.0 NEG); SS-A <1.0 NEG AI (<1.0 NEG); SS-B <1.0 NEG AI (<1.0 NEG)
[2024-11-20 14:39] LABS: Hepatitis B Core Ab Total NON-REACTIVE (NON-REACTIVE)
[2024-11-22 19:53] LABS: G-6-PD, RBC. 18.8 U/g Hgb (7.0-20.5)
== END 2024-11-19 13:25 | disposition home or self-care (01) ==
LOC: ANHGOSHLAB 13:26
PROVIDERS: PCP Family Medicine; Visit Provider Internal Medicine Rheumatology
DX: M25.50 Pain in unspecified joint (principal)
CPT/HCPCS: 36415; 80053; 82955; 85027; 86140; 86160; 86225; 86235; 86430; 86704; 86706; 86803

== ENCOUNTER 2025-01-10 16:24 | Outpatient (CLI) | payer BC, SELFPAY ==
--- NOTE | ~2025-01-10 | XR_ITS ---
EXAM/ PROCEDURE: XR hand RT min 3V - 01/10/2025 16:25 CDT HISTORY: 24 years old Male with S69.91XA - Unspecified injury of right wrist, hand and fi... COMPARISON: None available TECHNIQUE: Three view(s) FINDINGS/ IMPRESSION: There are no fractures or dislocations.Joint spaces are within normal limits. Reviewed, dictated and finalized at location A.
== END 2025-01-10 16:25 | disposition home or self-care (01) ==
LOC: GOSHIMG 16:24
PROVIDERS: PCP Nurse Practitioner Family; Visit Provider Nurse Practitioner Family
DX: S69.91XA Unspecified injury of right wrist, hand and finger(s), initial encounter (principal); R20.2 Paresthesia of skin; X58.XXXA Exposure to other specified factors, initial encounter
CPT/HCPCS: 73130

== ENCOUNTER 2025-03-21 16:14 | Emergency (ER) | payer BC, MEDICAID, SELFPAY ==
--- NOTE | 2025-03-21 16:17 | ED_ITS ---
HPI - Eye Problem General Stated complaint: eye abrasion Source: patient and RN notes reviewed Mode of arrival: ambulatory Limitations: no limitations History of Present Illness HPI Narrative: Patient is a 24-year-old male who presents to the [facility] with complaints of right eye pain. Patient states that he slept in his contacts accidentally over the weekend. He woke up and had irritation to his right eye. He is concerned about possible corneal abrasion. He was able to remove the contacts but has had continued discomfort in the right eye. He has some mild erythema noted to the sclera on the right. Denies visual disturbance. Related Data Home Medications ?Medication ?Instructions ?Recorded ?Confirmed ?Last Taken ?Type hydroxyzine HCl 10 mg tablet 25 mg PO QID PRN Anxiety 02/20/21 01/10/25 01/31/22 History bupropion HCl 75 mg tablet 150 mg PO BID 11/19/2412/22 Unknown History Allergies Allergy/AdvReac Type Severity Reaction Status Date / Time No Known Allergies Allergy Verified 01/31/25 16:21 Review of Systems Review of Systems: CONSTITUTIONAL: Denies fever, chills, or sweats. EYES: Reports right eye redness and irritation. ENT: Denies otalgia and sore throat CARDIOVASCULAR: Denies chest pain, palpitations, or edema. RESPIRATORY: Denies cough or dyspnea. GASTROINTESTINAL: Denies abdominal pain, nausea, vomiting, or diarrhea. GENITOURINARY: Denies dysuria or hematuria. SKIN: Denies rash or itching. MUSCULOSKELETAL: Denies back pain, joint pain, or myalgia. NEUROLOGIC: Denies headache, numbness, or weakness. Pertinent positives per HPI. [facility] Past Medical History Medical History Bipolar 1 disorder, depressed Anxiety HTN, age 0-18 Impulsive personality disorder Major depressive disorder, single episode, unspecified ADHD, predominantly hyperactive-impulsive subtype Adjustment disorder with depressed mood BMI,pediatric >= 95% (03/01/19) Developmental dyslexia Essential hypertension Morbid (severe) obesity due to excess calories Obstructive sleep apnea (adult) (pediatric) Thumb fracture (~09/26/17) Obesity (~09/26/17) Attention deficit disorder (~09/26/17) Surgical History Surgical History History of incision and drainage I&D Perirectal Abscess on 01/31 Family History Family History Mother Diabetes mellitus Family history of mental disorder Hypertension Father Family history of mental disorder Grandparent Diabetes mellitus Other Family history of elevated blood lipids Social History Social History Smoking status: Current some day smoker Tobacco type: e-cigarettes/vaping Second hand tobacco smoke exposure: No Additional smoking assessment comments: 5 YEARS VAPING will have a cigarette on occasion Alcohol intake: current Alcohol use details: occasionally Substance use: never Substance use type: does not use Do You Feel Safe in your Home?: Yes Lack of Transportation: No Lack of Food: Never True Current Housing: I Have Housing Concerned About Future Housing: No Difficulty Paying Gas/Electric Bills: No Difficulty Paying for Meds: No Currently Unemployed: No Education: High School Diploma/GED Difficulty w/ Childcare or Family Care: No Living arrangements: with family Gender identity (if verbalized by the patient): Male Spiritual care concerns: No Comments At the time of my signature, I reviewed and agree with the nursing past medical, surgical, social, and family history. There is no relevant family history pertinent to the patient complaint. Exam Narrative: GENERAL: This is a well-nourished, well-developed patient, in no apparent distress. HEAD: normocephalic, atraumatic. EYES: Sclera erythematous on right. Vision is grossly intact. EARS: External ears normal. Hearing grossly intact. NOSE: External nose normal with no obvious nasal discharge, nares without redness, no rhinorrhea. THROAT: Mucous membranes moist, posterior pharynx clear. NECK: Neck supple, non-tender without lymphadenopathy, masses or thyromegaly. CARDIOVASCULAR: Regular rate and rhythm without murmurs, gallops, or rubs. RESPIRATORY: Clear to auscultation. Breath sounds equal bilaterally. No wheezes, rales, or rhonchi. GASTROINTESTINAL: Abdomen soft, non-tender, nondistended. Bowel sounds are active. No hepato-splenomegaly, or palpable masses. No guarding. SKIN: warm, intact with no suspicious lesions or rash, good texture and turgor. NEURO: awake, alert, and oriented to person, place and time. There were no obvious focal neurologic abnormalities. Course Course Level of Care: Express Care Visit Vital Signs Vital signs: Vital Signs Temperature 97.0 F L 03/21/25 16:24 Pulse Rate 63 03/21/25 16:24 Respiratory Rate 16 03/21/25 16:24 Blood Pressure 140/68 03/21/25 16:24 Pulse Oximetry 100 03/21/25 16:24 Oxygen Delivery Room Air 03/21/25 16:24 Temperature 97.0 F L 03/21/25 16:24 Pulse Rate 63 03/21/25 16:24 Respiratory Rate 16 03/21/25 16:24 Blood Pressure 140/68 03/21/25 16:24 Pulse Oximetry 100 03/21/25 16:24 Oxygen Delivery Room Air 03/21/25 16:24 Reviewed Procedures Other Procedure Procedure 1: Other Procedure: Fluorescin exam performed. Topical anesthetic was instilled with good anesthesia using 1gtt of opth anesthetic agent (tetracaine). Fluorescein stain of the R eye was performed without uptake of dye. No epithelial defect was noted. NO FB, ulcer or dendritic lesions. Upper lid was everted and no FB or lesions were noted. NO Roseline sign. Ppatient tolerated the procedure well, no adverse reaction or complications. MDM - Eye Problem MDM Narrative Medical decision making narrative: Use the eye ointment as instructed. If you are not better in two (2) days, you need to follow up with an lead assistant manager. Do not rub the eye or put anything else in the eye, this can cause abrasions (scratches) on the eye or lead to vision loss. Also it is important not to touch the tube or tip of drops to the eye, as this can cause further infection. Wash your hands very well before instilling the medication. Handwashing can help prevent the spread of disease. Follow up with PCP in 7-10 days Return to ER for problems Contact [facility] if you need an Purchasing And Fiscal Clerk [] Differential Diagnosis Differential diagnosis: Likely corneal abrasion, conjunctivitis and hyphema Critical Care Time Critical Care Time Critical Care Time: No Discharge Plan Discharge Clinical Impression: Corneal abrasion, right Qualifiers: Encounter type: initial encounter Qualified Code(s): S05.01XA - Injury of conjunctiva and corneal abrasion without foreign body, right eye, initial encounter Patient Disposition: Home Condition: Stable Instructions: Antibiotic Form, Corneal Abrasion (ED) Additional Instructions: Use the eye ointment as instructed. If you are not better in two (2) days, you need to follow up with an lead assistant manager. Do not rub the eye or put anything else in the eye, this can cause abrasions (scratches) on the eye or lead to vision loss. Also it is important not to touch the tube or tip of drops to the eye, as this can cause further infection. Wash your hands very well before instilling the medication. Handwashing can help prevent the spread of disease. Follow up with PCP in 7-10 days Return to ER for problems Contact [facility] if you need an Purchasing And Fiscal Clerk [] Patient Language: [place] Prescriptions: New erythromycin 5 mg/gram (0.5 %) ointment 1 cm RIGHT EYE DAILY Qty: 3.5 0RF No Action hydroxyzine HCl 10 mg tablet 25 mg PO QID PRN (Reason: Anxiety) metoprolol succinate 50 mg tablet extended release 24 hr 75 mg PO DAILY Qty: 135 3RF methylprednisolone [Medrol (Valdemar)] 4 mg tablets,dose pack See Rx Instructions PO PER PKG DIR Qty: 21 0RF Rx Instructions: PO PER PKG DIR (DME) right Cock up splint See Rx Instructions .Route .MEDSUPPLY Qty: 1 0RF Rx Instructions: As directed bupropion HCl 75 mg tablet 150 mg PO BID loratadine 10 mg tablet See Rx Instructions .ROUTE .COMPLEX Qty: 90 2RF Dose Instruction: TAKE 1 TABLET BY MOUTH ONCE DAILY NEEDED FOR RUNNY NOSE (NASAL CONGESTION) Rx Instructions: TAKE 1 TABLET BY MOUTH ONCE DAILY NEEDED FOR RUNNY NOSE (NASAL CONGESTION) amlodipine 10 mg tablet 10 mg PO DAILY Qty: 30 0RF Rx Instructions: LAST REFILL UNTIL SEEN minoxidil [Hair Regrowth Treatment] 5 % foam See Rx Instructions .ROUTE .COMPLEX Qty: 60 1RF Dose Instruction: APPLY TOPICALLY TWICE A DAY Rx Instructions: APPLY TOPICALLY TWICE A DAY Follow-up/Referrals: Tl Moreno MD [Primary Care Provider, [facility]] Time of Disposition: 17:03
[2025-03-21 16:24] VITALS: BP 140/68; PULSE 63; RESP 16; TEMP 36.1; O2SAT 100
[2025-03-21] MEDS: TETRACAINE HCL 0.5% OPHTH SOLN 4 ML BTL RIGHT EYE (16:45)
[2025-03-21] MEDS: FLUORESCEIN SOD 1 MG/STRIP RIGHT EYE (16:47)
== END 2025-03-21 17:15 | disposition home or self-care (01) ==
PROVIDERS: Emergency Provider Nurse Practitioner; PCP Family Medicine
DX: H18.821 Corneal disorder due to contact lens, right eye (principal); F17.290 Nicotine dependence, other tobacco product, uncomplicated; I10 Essential (primary) hypertension; E66.01 Morbid (severe) obesity due to excess calories; Z68.43 Body mass index [BMI] 50.0-59.9, adult; F41.9 Anxiety disorder, unspecified; F32.9 Major depressive disorder, single episode, unspecified; F81.0 Specific reading disorder
CPT/HCPCS: 99213; G0463

== ENCOUNTER 2025-05-26 14:20 | Emergency (ER) | payer BC, MEDICAID, SELFPAY ==
--- NOTE | 2025-05-26 14:21 | ED.URI ---
HPI - URI/Sore Throat General Chief Complaint: Upper Respiratory Infection Stated Complaint: COUGH/CONGESTION Time Seen by Provider: 05/26/25 14:20 Source: patient Mode of arrival: ambulatory Limitations: no limitations History of Present Illness HPI Narrative: Andres is a 24 year old male patient presenting to the clinic today with c/o cough, sinus drainage, fever, headache, nasal congestion, body aches, and chest congestion x3 days. States his fever was 101.7? F. has taken Mucinex, emergency C, and Tylenol for his symptoms. Denies any chest pain or shortness of breath. MD elicited complaint: sore throat and nasal congestion Related Data Allergies Allergy/AdvReac Type Severity Reaction Status Date / Time No Known Allergies Allergy Verified 05/26/25 14:28 Review of Systems Review of Systems: Pertinent positives per HPI. Patient denies any rash, visual changes, dizziness, shortness of breath, chest pain, palpitations, nausea, vomiting, diarrhea, constipation, abdominal pain, or any urinary issues. PMFSH Past Medical History Medical History Bipolar 1 disorder, depressed Anxiety HTN, age 0-18 Impulsive personality disorder Major depressive disorder, single episode, unspecified ADHD, predominantly hyperactive-impulsive subtype Adjustment disorder with depressed mood BMI,pediatric >= 95% (03/01/19) Developmental dyslexia Essential hypertension Morbid (severe) obesity due to excess calories Obstructive sleep apnea (adult) (pediatric) Thumb fracture (~09/26/17) Obesity (~09/26/17) Attention deficit disorder (~09/26/17) Surgical History Surgical History History of incision and drainage I&D Perirectal Abscess on 01/31 Family History Family History Mother Diabetes mellitus Family history of mental disorder Hypertension Father Family history of mental disorder Grandparent Diabetes mellitus Other Family history of elevated blood lipids Social History Social History Smoking status: Current some day smoker Tobacco type: e-cigarettes/vaping Second hand tobacco smoke exposure: No Additional smoking assessment comments: 5 YEARS VAPING will have a cigarette on occasion Alcohol intake: former Substance use: never Substance use type: does not use Lack of Transportation: No Lack of Food: Never True Current Housing: I Have Housing Concerned About Future Housing: No Difficulty Paying Gas/Electric Bills: No Difficulty Paying for Meds: No Currently Unemployed: No Education: High School Diploma/GED Difficulty w/ Childcare or Family Care: No Living arrangements: with family Gender identity (if verbalized by the patient): Male Spiritual care concerns: No Comments At the time of my signature, I reviewed and agree with the nursing past medical, surgical, social, and family history. There is no relevant family history pertinent to the patient complaint. Exam Narrative: General: Well-developed, morbidly obese, in no apparent distress Head: Normocephalic, atraumatic Eyes: Pupils equally round and reactive to light bilaterally, EOM intact, sclera and conjunctive clear, no discharge, lids normal Ears: TMs intact and congested, ear canals clear, no drainage, grossly hearing normal. Nose: Nares patent, clear nasal discharge, monitor inflammation, no sinus tenderness. Mouth: Oral pharynx red with tonsillar enlargement without lesions or masses, good dentition, MMM. Neck: Supple, trachea midline, no enlargement of anterior or posterior cervical nodes, no thyroid masses or goiter palpable. Cardio: Regular rate and rhythm, s1 and s2 normal, no murmur appreciated. Resp: Clear to auscultation bilaterally, no rhonchi, rales, wheezing or rubs Course Course Level of Care: Express Care Visit Vital Signs Vital signs: Vital Signs Temperature 36.9 C 05/26/25 14:34 Pulse Rate 82 05/26/25 14:34 Respiratory Rate 16 05/26/25 14:34 Blood Pressure 164/89 H 05/26/25 14:34 Pulse Oximetry 100 05/26/25 14:34 Temperature 36.9 C 05/26/25 14:34 Pulse Rate 82 05/26/25 14:34 Respiratory Rate 16 05/26/25 14:34 Blood Pressure 164/89 H 05/26/25 14:34 Pulse Oximetry 100 05/26/25 14:34 MDM MDM Narrative Medical decision making narrative: At the time of visit patient is resting comfortably on the exam table. Patient appears to be nontoxic. C/o cough, sinus drainage, fever, headache, nasal congestion, body aches, and chest congestion x3 days. States his fever was 101.7? F. has taken Mucinex, emergency C, and Tylenol for his symptoms. Denies any chest pain or shortness of breath. On exam patient has bilateral TMs intact and congested, clear nasal drainage, mild anterior turbinate inflammation, oral pharynx red with postnasal drip, mild tonsillar enlargement without cervical lymphadenopathy, no exudate to the tonsils, heart rates regular rate and rhythm, lung sounds are clear. Diagnostics: COVID, flu, and strep test were all negative in the clinic today. We will send strep for culture Plan: I suspect patient has URI/pharyngitis. We will send strep for culture. Supportive measures were discussed with the patient and they voiced understanding discharge instructions and agrees to treatment plan. Return precautions reviewed Differential Diagnosis Differential Diagnosis: Differential diagnostic considerations for upper respiratory infection include upper respiratory infection, croup, otitis media, sinusitis, viral infection, bronchitis, influenza, pharyngitis, strep, uvulitis. Discharge Plan Discharge Clinical Impression: URI (upper respiratory infection) Qualifiers: URI type: unspecified URI Qualified Code(s): J06.9 - Acute upper respiratory infection, unspecified Pharyngitis Qualifiers: Pharyngitis/tonsillitis etiology: unspecified etiology Qualified Code(s): J02.9 - Acute pharyngitis, unspecified Patient Disposition: Home Condition: Stable Instructions: Antibiotic Form, Pharyngitis (ED), Cold Symptoms (ED) Additional Instructions: COVID, flu, and strep test were all negative in the clinic today. We will send strep for culture. If the strep culture comes back positive we will contact you and place you on antibiotics at that time. May take Coricidin HBP for cold/flu symptoms Increase fluids and stay well hydrated May take Tylenol or motrin as directed on bottle for pain/fever May use Flonase 1 spray in each nare daily May take OTC antihistamines such as Zyrtec or Claritin daily as directed on bottle May apply Vicks vapor rub to chest to open sinuses Sinus rinses for congestion Cepacol spray, cough drops, throat lozenges, warm tea with honey/lemon, gargle salt water to soothe throat BRAT diet for diarrhea Clear liquids x 24 hours then advance as tolerated for nausea/vomiting Go to the ED if you develop a worsening in your condition- high fever not controlled by Tylenol or Motrin, dehydration, weakness, lethargy, shortness of breath, or chest pain. Follow up with your PCP in 3-5 days if symptoms persist. Patient Language: [place] Prescriptions: No Action (DME) right Cock up splint See Rx Instructions .Route .MEDSUPPLY Qty: 1 0RF Rx Instructions: As directed Wegovy 0.25 mg/0.5 mL pen injector 0.25 mg subcut WEEKLY Qty: 2 0RF metoprolol succinate 50 mg tablet extended release 24 hr 50 mg PO DAILY Qty: 90 3RF amlodipine 10 mg tablet 10 mg PO DAILY Qty: 90 1RF buspirone 5 mg tablet 5 mg PO BID Qty: 60 5RF Follow-up/Referrals: Tl Moreno MD [Primary Care Provider, Family Practice] Stand Alone Forms: Work/School Release IP Time of Disposition: 14:48 Quality NIHSS Nursing Documentation ED NIHSS nursing documentation: reviewed/agree
[2025-05-26 14:34] VITALS: BP 164/89; PULSE 82; RESP 16; TEMP 36.9; O2SAT 100
[2025-05-26 14:51] LABS: EDCOVIDSCREEN Negative (Negative); EDINFLUASCREEN Negative (Negative); EDINFLUBSCREEN Negative (Negative); EDSTREPNEGPOS1 Negative (Negative)
== END 2025-05-26 14:58 | disposition home or self-care (01) ==
PROVIDERS: Emergency Provider Nurse Practitioner Family; PCP Family Medicine
DX: J06.9 Acute upper respiratory infection, unspecified (principal); I10 Essential (primary) hypertension; F17.290 Nicotine dependence, other tobacco product, uncomplicated; Z20.822 Contact with and (suspected) exposure to COVID-19
CPT/HCPCS: 87081; 87426; 87804; 87880; 99213; G0463